=== PATIENT | male | born 1995 | race Caucasian/White ===

== ENCOUNTER 2018-09-23 12:58 | Emergency (ER) | payer MEDICAID ==
[~2018-09-23] VITALS: Wt 77.1 kg
[~2018-09-23 12:58] MED LIST: ACYCLOVIR400 MG PO
[2018-09-23] MEDS ORDERED: ZYRTEC10 MG PO (14:17)
[2018-09-23] MEDS ORDERED: ZOFRAN4 MG PO (14:17)
[2018-09-23] MEDS ORDERED: PREDNISONE20 M1 PO (14:17)
== END 2018-09-23 14:19 | disposition home or self-care (01) ==
LOC: ED 12:58
DX: B34.9 Viral infection, unspecified (principal)

== ENCOUNTER 2018-11-06 20:36 | Emergency (ER) | payer MEDICAID ==
[~2018-11-06] VITALS: Ht 177.8 cm; Wt 65.8 kg
[~2018-11-06 20:36] MED LIST changes: +PREDNISONE20 M1 PO; +ZOFRAN4 MG PO; +ZYRTEC10 MG PO
[2018-11-07] MEDS ORDERED: DOXYCYCLINE100 M3 PO (00:22)
== END 2018-11-07 00:27 | disposition home or self-care (01) ==
LOC: ED 20:36
DX: J32.0 Chronic maxillary sinusitis (principal); F17.200 Nicotine dependence, unspecified, uncomplicated; Z79.899 Other long term (current) drug therapy; Z88.0 Allergy status to penicillin

== ENCOUNTER 2019-05-21 23:00 | Emergency (ER) | payer MEDICAID ==
[~2019-05-21] VITALS: Ht 175.2 cm; Wt 61.2 kg
[~2019-05-21 23:00] MED LIST changes: +DOXYCYCLINE100 M3 PO
[2019-05-21] MEDS ORDERED: Motrin,Rufen800 MG PO (23:10)
[2019-05-21] MEDS ORDERED: CLINDAMYCIN HC300 MG PO (23:10)
== END 2019-05-21 23:29 | disposition home or self-care (01) ==
LOC: ED 23:00
DX: K08.89 Other specified disorders of teeth and supporting structures (principal); Z88.0 Allergy status to penicillin; Z91.040 Latex allergy status

== ENCOUNTER 2019-08-17 14:15 | Emergency (ER) | payer MEDICAID ==
[~2019-08-17] VITALS: Ht 175.2 cm; Wt 63.5 kg
[~2019-08-17 14:15] MED LIST changes: +CLINDAMYCIN HC300 MG PO; +Motrin,Rufen800 MG PO
[2019-08-17 15:07] LABS: BASO % 0.4 % (0.0-1.0); EOS % 0.2 % (1.0-4.0); HEMATOCRIT 43.6 % (42.0-52.0); HEMOGLOBIN 14.9 g/dl (14.0-18.0); LYMPH # 1.5 10*3/uL (1.3-4.4); LYMPH % 26.8 % (27.0-41.0); MEAN CELL VOLUME 91.8 fl (80.0-94.0); MEAN CORPUSCULAR HGB 31.4 pg (27.0-31.0); MEAN CORPUSCULAR HGB CONC 34.2 g/dl (33.0-37.0); MEAN PLATELET VOLUME 8.7 fl (9.6-12.3); MONO # 0.3 10*3/uL (0.1-1.0); MONO % 5.5 % (3.0-9.0); NEUT # 3.7 10*3/uL (2.3-7.9); NEUT % 66.9 % (47.0-73.0); PLATELET COUNT AUTOMATED 171 10*3/uL (130-400); RED BLOOD COUNT 4.75 10*6/uL (4.50-5.90); WHITE BLOOD COUNT 5.6 10*3/uL (4.8-10.8)
[2019-08-17 15:19] LABS: ALBUMIN 4.1 gm/dl (3.1-4.5); ALKALINE PHOSPHATASE 51 U/L (45-117); BUN 12 mg/dl (7-24); CHLORIDE 109 mmol/L (98-107); CREATININE 0.97 mg/dL (0.70-1.30); LIPASE 123 U/L (73-393); POTASSIUM 3.9 mmol/L (3.5-5.1); SGOT/AST 21 IU/L (3-35); SGPT/ALT 24 U/L (12-78); SODIUM 141 mmol/L (136-145); TOTAL PROTEIN 7.1 gm/dL (6.4-8.2)
[2019-08-17] MEDS ORDERED: PHENERGAN25 M3 PO (17:05)
== END 2019-08-17 17:14 | disposition home or self-care (01) ==
LOC: ED 14:15
PROVIDERS: Emergency Medicine
DX: K52.9 Noninfective gastroenteritis and colitis, unspecified (principal); K62.89 Other specified diseases of anus and rectum; Z88.0 Allergy status to penicillin; Z79.2 Long term (current) use of antibiotics; Z79.899 Other long term (current) drug therapy

== ENCOUNTER 2019-08-22 18:24 | Emergency (ER) | payer MEDICAID ==
[~2019-08-22] VITALS: Ht 175.2 cm; Wt 63.5 kg
[~2019-08-22 18:24] MED LIST changes: +PHENERGAN25 M3 PO
[2019-08-22] MEDS ORDERED: ANTIBIOTIC28.4 GM T (18:58)
[2019-08-22] MEDS ORDERED: CEPHALEXIN500 M1 PO (18:58)
== END 2019-08-22 19:35 | disposition home or self-care (01) ==
LOC: ED 18:24
DX: S61.210A Laceration without foreign body of right index finger without damage to nail, initial encounter (principal); Z88.0 Allergy status to penicillin; Z79.2 Long term (current) use of antibiotics; Z79.899 Other long term (current) drug therapy; W26.0XXA Contact with knife, initial encounter; Y93.89 Activity, other specified; Y92.89 Other specified places as the place of occurrence of the external cause; Y99.8 Other external cause status

== ENCOUNTER 2019-09-14 19:54 | Emergency (ER) | payer MEDICAID ==
[~2019-09-14] VITALS: Wt 61.2 kg
[~2019-09-14 19:54] MED LIST changes: +ANTIBIOTIC28.4 GM T; +CEPHALEXIN500 M1 PO
[2019-09-14] MEDS ORDERED: CLEOCIN HCL150 MG PO (20:39)
== END 2019-09-14 20:49 | disposition home or self-care (01) ==
LOC: ED 19:54
DX: K04.7 Periapical abscess without sinus (principal); J45.909 Unspecified asthma, uncomplicated; Z88.0 Allergy status to penicillin; Z86.14 Personal history of Methicillin resistant Staphylococcus aureus infection

== ENCOUNTER 2019-09-21 22:27 | Emergency (ER) | payer MEDICAID ==
[~2019-09-21] VITALS: Ht 172.7 cm; Wt 61.2 kg
[~2019-09-21 22:27] MED LIST changes: +CLEOCIN HCL150 MG PO
[2019-09-21 23:53] LABS: BASO % 0.5 % (0.0-1.0); EOS % 0.3 % (1.0-4.0); HEMATOCRIT 40.3 % (42.0-52.0); LYMPH # 1.8 10*3/uL (1.3-4.4); MEAN CELL VOLUME 89.4 fl (80.0-94.0); MEAN CORPUSCULAR HGB CONC 34.7 g/dl (33.0-37.0); MEAN PLATELET VOLUME 8.8 fl (9.6-12.3); MONO # 0.5 10*3/uL (0.1-1.0); MONO % 7.8 % (3.0-9.0); NEUT # 3.8 10*3/uL (2.3-7.9); NEUT % 62.2 % (47.0-73.0); PLATELET COUNT AUTOMATED 186 10*3/uL (130-400); RED BLOOD COUNT 4.51 10*6/uL (4.50-5.90); RED CELL DISTRI WIDTH 11.6 % (0-14.5)
[2019-09-22 00:14] LABS: ALKALINE PHOSPHATASE 52 U/L (45-117); BUN 12 mg/dl (7-24); CHLORIDE 108 mmol/L (98-107); CREATININE 0.93 mg/dL (0.70-1.30); POTASSIUM 3.8 mmol/L (3.5-5.1); SGOT/AST 14 IU/L (3-35); SGPT/ALT 18 U/L (12-78); SODIUM 141 mmol/L (136-145); TOTAL PROTEIN 6.7 gm/dL (6.4-8.2)
[2019-09-22] MEDS ORDERED: ZOFRAN4 MG PO (01:31)
[2019-09-22] MEDS ORDERED: FLAGYL500 MG PO (01:31)
== END 2019-09-22 01:34 | disposition home or self-care (01) ==
LOC: ED 22:27
PROVIDERS: Nurse Practitioner Family
DX: K04.7 Periapical abscess without sinus (principal); J45.909 Unspecified asthma, uncomplicated; K21.9 Gastro-esophageal reflux disease without esophagitis; Z88.0 Allergy status to penicillin; Z86.14 Personal history of Methicillin resistant Staphylococcus aureus infection

== ENCOUNTER 2019-12-03 21:09 | Emergency (ER) | payer MEDICAID ==
[~2019-12-03] VITALS: Ht 175.2 cm; Wt 59.0 kg
[~2019-12-03 21:09] MED LIST changes: +FLAGYL500 MG PO
[2019-12-03] MEDS ORDERED: CLARITIN10 MG PO (22:39)
[2019-12-03] MEDS ORDERED: PROVENTIL HFA6.7 GM INH (22:39)
== END 2019-12-03 22:42 | disposition home or self-care (01) ==
LOC: ED 21:09
DX: J06.9 Acute upper respiratory infection, unspecified (principal); J45.909 Unspecified asthma, uncomplicated; F17.200 Nicotine dependence, unspecified, uncomplicated; Z88.0 Allergy status to penicillin; Z86.14 Personal history of Methicillin resistant Staphylococcus aureus infection

== ENCOUNTER 2020-01-30 16:00 | Emergency (ER) | payer MEDICAID ==
[~2020-01-30] VITALS: Ht 180.3 cm; Wt 65.8 kg
[~2020-01-30 16:00] MED LIST changes: +CLARITIN10 MG PO; +PROVENTIL HFA6.7 GM INH
== END 2020-01-30 18:00 | disposition home or self-care (01) ==
LOC: ED 16:00
DX: R09.1 Pleurisy (principal); Z88.0 Allergy status to penicillin; Z79.899 Other long term (current) drug therapy

== ENCOUNTER 2020-05-26 16:59 | Emergency (ER) | payer MEDICAID ==
[~2020-05-26] VITALS: Wt 63.5 kg
== END 2020-05-26 21:16 | disposition home or self-care (01) ==
LOC: ED 16:59
DX: M22.91 Unspecified disorder of patella, right knee (principal); J45.909 Unspecified asthma, uncomplicated; F17.200 Nicotine dependence, unspecified, uncomplicated; Z88.0 Allergy status to penicillin

== ENCOUNTER 2020-09-21 12:05 | Emergency (ER) | payer MEDICAID ==
[~2020-09-21] VITALS: Ht 177.8 cm; Wt 65.8 kg
[2020-09-21 13:26] LABS: BASO % 0.6 % (0.0-1.0); EOS # 0.1 10*3/uL (0.0-0.4); HEMATOCRIT 42.4 % (42.0-52.0); LYMPH # 1.5 10*3/uL (1.3-4.4); LYMPH % 32.3 % (27.0-41.0); MEAN CELL VOLUME 89.6 fl (80.0-94.0); MEAN CORPUSCULAR HGB 30.4 pg (27.0-31.0); MEAN PLATELET VOLUME 8.3 fl (9.6-12.3); MONO # 0.4 10*3/uL (0.1-1.0); MONO % 7.8 % (3.0-9.0); NEUT # 2.8 10*3/uL (2.3-7.9); NEUT % 58.1 % (47.0-73.0); PLATELET COUNT AUTOMATED 171 10*3/uL (130-400); RED BLOOD COUNT 4.73 10*6/uL (4.50-5.90); RED CELL DISTRI WIDTH 11.9 % (0-14.5); WHITE BLOOD COUNT 4.8 10*3/uL (4.8-10.8)
[2020-09-21 13:40] LABS: ALKALINE PHOSPHATASE 61 U/L (45-117); BUN 13 mg/dl (7-24); CHLORIDE 106 mmol/L (98-107); CREATININE 0.89 mg/dL (0.70-1.30); LIPASE 100 U/L (73-393); POTASSIUM 4.4 mmol/L (3.5-5.1); SGOT/AST 19 IU/L (3-35); SGPT/ALT 23 U/L (12-78); SODIUM 141 mmol/L (136-145); TOTAL PROTEIN 6.8 gm/dL (6.4-8.2)
[2020-09-21 14:04] LABS: BILIRUBIN Negative (Negative); BLOOD 1+ (Negative); CLARITY Clear (Clear); COLOR Yellow (Yellow); GLUCOSE Negative (Negative); KETONE Negative (Negative); LEUKO ESTERASE Trace (Negative); NITRITE Negative (Negative); PH 7.5 (4.5-8.0); SPECIFIC GRAVITY 1.025 (1.001-1.030)
[2020-09-21 14:22] LABS: EPITHELIAL CELLS 0-2; RBC 21-30 rbc/hpf (0-2); WBC 0-2 wbc/hpf (0-5)
[2020-09-21] MEDS ORDERED: IBUPROFEN600 MG PO (15:12)
== END 2020-09-21 17:50 | disposition home or self-care (01) ==
LOC: ED 12:05
PROVIDERS: Physician Assistant
DX: N23 Unspecified renal colic (principal)

== ENCOUNTER 2020-12-17 18:04 | Emergency (ER) | payer MEDICAID ==
[~2020-12-17] VITALS: Ht 177.8 cm; Wt 65.8 kg
[~2020-12-17 18:04] MED LIST changes: +IBUPROFEN600 MG PO
[2020-12-17 18:59] LABS: BASO % 0.7 % (0.0-1.0); EOS # 0.1 10*3/uL (0.0-0.4); EOS % 2.1 % (1.0-4.0); HEMATOCRIT 41.9 % (42.0-52.0); LYMPH # 1.8 10*3/uL (1.3-4.4); LYMPH % 40.8 % (27.0-41.0); MEAN CELL VOLUME 91.9 fl (80.0-94.0); MEAN CORPUSCULAR HGB 30.9 pg (27.0-31.0); MEAN CORPUSCULAR HGB CONC 33.7 g/dl (33.0-37.0); MEAN PLATELET VOLUME 8.5 fl (9.6-12.3); MONO # 0.4 10*3/uL (0.1-1.0); MONO % 10.1 % (3.0-9.0); NEUT % 46.1 % (47.0-73.0); PLATELET COUNT AUTOMATED 195 10*3/uL (130-400); RED BLOOD COUNT 4.56 10*6/uL (4.50-5.90); RED CELL DISTRI WIDTH 11.9 % (0-14.5); WHITE BLOOD COUNT 4.3 10*3/uL (4.8-10.8)
[2020-12-17 19:16] LABS: ALBUMIN 3.7 gm/dl (3.1-4.5); ALKALINE PHOSPHATASE 60 U/L (45-117); BUN 12 mg/dl (7-24); CHLORIDE 106 mmol/L (98-107); CREATININE 0.79 mg/dL (0.70-1.30); POTASSIUM 4.4 mmol/L (3.5-5.1); SGOT/AST 15 IU/L (3-35); SGPT/ALT 20 U/L (12-78); SODIUM 140 mmol/L (136-145); TOTAL PROTEIN 6.5 gm/dL (6.4-8.2)
== END 2020-12-17 20:25 | disposition home or self-care (01) ==
LOC: ED 18:04
PROVIDERS: Physician Assistant
DX: R51.9 Headache, unspecified (principal); F41.9 Anxiety disorder, unspecified; J45.909 Unspecified asthma, uncomplicated; Z88.0 Allergy status to penicillin

== ENCOUNTER 2021-01-16 17:15 | Emergency (ER) | payer MEDICAID ==
[2021-01-16 18:35] LABS: BASO % 0.5 % (0.0-1.0); EOS # 0.1 10*3/uL (0.0-0.4); HEMATOCRIT 38.9 % (42.0-52.0); LYMPH % 31.6 % (27.0-41.0); MEAN CELL VOLUME 88.2 fl (80.0-94.0); MEAN CORPUSCULAR HGB 30.8 pg (27.0-31.0); MONO # 0.5 10*3/uL (0.1-1.0); MONO % 7.7 % (3.0-9.0); NEUT # 3.7 10*3/uL (2.3-7.9); PLATELET COUNT AUTOMATED 184 10*3/uL (130-400); RED BLOOD COUNT 4.41 10*6/uL (4.50-5.90); RED CELL DISTRI WIDTH 11.6 % (0-14.5); WHITE BLOOD COUNT 6.2 10*3/uL (4.8-10.8)
[2021-01-16 18:47] LABS: BILIRUBIN Negative (Negative); BLOOD Negative (Negative); CLARITY Cloudy (Clear); COLOR Yellow (Yellow); GLUCOSE Negative (Negative); KETONE Negative (Negative); LEUKO ESTERASE Negative (Negative); NITRITE Negative (Negative); UROBILINOGEN 0.2 E.U./dl (0.0-1.0)
[2021-01-16 18:50] LABS: ALKALINE PHOSPHATASE 56 U/L (45-117); BUN 13 mg/dl (7-24); CHLORIDE 108 mmol/L (98-107); CREATININE 0.85 mg/dL (0.70-1.30); LIPASE 165 U/L (73-393); SGOT/AST 14 IU/L (3-35); SGPT/ALT 20 U/L (12-78); SODIUM 141 mmol/L (136-145); TOTAL PROTEIN 6.5 gm/dL (6.4-8.2)
[2021-01-16 18:59] LABS: EPITHELIAL CELLS 0-2; WBC 0-2 wbc/hpf (0-5)
[2021-01-16] MEDS ORDERED: ROBAXIN-750750 MG PO (20:33)
[2021-01-16] MEDS ORDERED: IBUPROFEN600 MG PO (20:33)
== END 2021-01-16 20:42 | disposition home or self-care (01) ==
LOC: ED 17:15
PROVIDERS: Physician Assistant
DX: S39.012A Strain of muscle, fascia and tendon of lower back, initial encounter (principal); Z88.8 Allergy status to other drugs, medicaments and biological substances; X58.XXXA Exposure to other specified factors, initial encounter; Y93.89 Activity, other specified; Y92.89 Other specified places as the place of occurrence of the external cause; Y99.8 Other external cause status

== ENCOUNTER 2021-02-15 14:35 | Emergency (ER) | payer MEDICAID ==
[~2021-02-15] VITALS: Ht 175.2 cm; Wt 61.2 kg
[~2021-02-15 14:35] MED LIST changes: +ROBAXIN-750750 MG PO
[2021-02-15 15:20] LABS: BASO % 0.5 % (0.0-1.0); EOS # 0.1 10*3/uL (0.0-0.4); EOS % 1.5 % (1.0-4.0); HEMATOCRIT 41.6 % (42.0-52.0); LYMPH # 2.6 10*3/uL (1.3-4.4); LYMPH % 44.1 % (27.0-41.0); MEAN CELL VOLUME 87.4 fl (80.0-94.0); MEAN CORPUSCULAR HGB 31.1 pg (27.0-31.0); MEAN CORPUSCULAR HGB CONC 35.6 g/dl (33.0-37.0); MEAN PLATELET VOLUME 8.5 fl (9.6-12.3); MONO # 0.5 10*3/uL (0.1-1.0); MONO % 8.7 % (3.0-9.0); NEUT # 2.7 10*3/uL (2.3-7.9); NEUT % 44.9 % (47.0-73.0); PLATELET COUNT AUTOMATED 209 10*3/uL (130-400); RED BLOOD COUNT 4.76 10*6/uL (4.50-5.90); RED CELL DISTRI WIDTH 11.9 % (0-14.5)
[2021-02-15 15:38] LABS: ALBUMIN 3.8 gm/dl (3.1-4.5); ALKALINE PHOSPHATASE 64 U/L (45-117); BUN 9 mg/dl (7-24); CHLORIDE 108 mmol/L (98-107); POTASSIUM 3.4 mmol/L (3.5-5.1); SGOT/AST 14 IU/L (3-35); SGPT/ALT 22 U/L (12-78); SODIUM 139 mmol/L (136-145); TOTAL PROTEIN 6.8 gm/dL (6.4-8.2)
[2021-02-15 16:38] LABS: BILIRUBIN Negative (Negative); BLOOD 3+ (Negative); CLARITY Cloudy (Clear); COLOR Dark Yellow (Yellow); GLUCOSE Negative (Negative); KETONE Trace (Negative); LEUKO ESTERASE Trace (Negative); NITRITE Negative (Negative); PH 6.5 (4.5-8.0)
[2021-02-15 16:54] LABS: MUCOUS 2+; RBC 51-100 rbc/hpf (0-2)
== END 2021-02-15 18:43 | disposition home or self-care (01) ==
LOC: ED 14:35
PROVIDERS: Physician Assistant
DX: R31.9 Hematuria, unspecified (principal); R10.9 Unspecified abdominal pain; Z79.899 Other long term (current) drug therapy

== ENCOUNTER 2021-02-18 00:27 | Emergency (ER) | payer MEDICAID ==
[~2021-02-18] VITALS: Ht 177.8 cm; Wt 61.2 kg
== END 2021-02-18 00:52 | disposition home or self-care (01) ==
LOC: ED 00:27
DX: F41.9 Anxiety disorder, unspecified (principal); Z79.899 Other long term (current) drug therapy

== ENCOUNTER 2021-05-02 17:17 | Emergency (ER) | payer MEDICAID ==
[~2021-05-02] VITALS: Ht 177.8 cm; Wt 63.5 kg
== END 2021-05-02 17:57 | disposition left against medical advice (07) ==
LOC: ED 17:17
DX: R00.0 Tachycardia, unspecified (principal); R07.9 Chest pain, unspecified; Z53.21 Procedure and treatment not carried out due to patient leaving prior to being seen by health care provider

== ENCOUNTER 2021-06-06 02:39 | Emergency (ER) | payer MEDICAID | END 2021-06-06 03:17 | disposition home or self-care (01) | LOC: ED 02:39 | DX: R00.2 Palpitations (principal); F41.9 Anxiety disorder, unspecified ==

== ENCOUNTER → 2021-09-25 | Outpatient (CLI) | payer MEDICAID | END | disposition home or self-care (01) | LOC: COVID19 17:30 | PROVIDERS: ATTEND Internal Medicine | DX: U07.1 COVID-19 (principal) ==

== ENCOUNTER 2021-11-26 01:31 | Emergency (ER) | payer MEDICAID ==
[2021-11-26] MEDS ORDERED: AMOXICILLIN500 M2 PO (03:59)
[2021-11-26] MEDS ORDERED: DEBROX15 ML OT (03:59)
== END 2021-11-26 04:02 | disposition home or self-care (01) ==
LOC: ED 01:31
DX: J45.909 Unspecified asthma, uncomplicated (principal)

== ENCOUNTER 2022-06-01 23:56 | Emergency (ER) | payer MEDICAID ==
[~2022-06-01] VITALS: Ht 177.8 cm; Wt 63.5 kg
[~2022-06-01 23:56] MED LIST changes: +AMOXICILLIN500 M2 PO; +DEBROX15 ML OT
[2022-06-02 03:35] LABS: BASO % 0.2 % (0.0-1.0); EOS % 0.7 % (1.0-4.0); HEMATOCRIT 38.2 % (42.0-52.0); LYMPH # 0.2 10*3/uL (1.3-4.4); MEAN CORPUSCULAR HGB 31.3 pg (27.0-31.0); MEAN CORPUSCULAR HGB CONC 35.6 g/dl (33.0-37.0); MEAN PLATELET VOLUME 8.7 fl (9.6-12.3); MONO # 0.5 10*3/uL (0.1-1.0); MONO % 8.1 % (3.0-9.0); NEUT % 87.6 % (47.0-73.0); PLATELET COUNT AUTOMATED 154 10*3/uL (130-400); RED BLOOD COUNT 4.34 10*6/uL (4.50-5.90); RED CELL DISTRI WIDTH 11.9 % (0-14.5); WHITE BLOOD COUNT 5.7 10*3/uL (4.8-10.8)
[2022-06-02 03:50] LABS: BUN 15 mg/dl (7-24); CHLORIDE 107 mmol/L (98-107); CREATININE 0.82 mg/dL (0.70-1.30); POTASSIUM 3.3 mmol/L (3.5-5.1); SODIUM 138 mmol/L (136-145)
== END 2022-06-02 05:23 | disposition home or self-care (01) ==
LOC: ED 23:56
PROVIDERS: Emergency Medicine
DX: R09.81 Nasal congestion (principal); Z20.822 Contact with and (suspected) exposure to COVID-19; R09.89 Other specified symptoms and signs involving the circulatory and respiratory systems; R50.9 Fever, unspecified; Z88.0 Allergy status to penicillin; Z90.89 Acquired absence of other organs

== ENCOUNTER 2022-08-08 21:42 | Emergency (ER) | payer MEDICAID ==
[~2022-08-08] VITALS: Ht 175.2 cm; Wt 58.7 kg
[2022-08-08 22:55] LABS: BASO % 0.6 % (0.0-1.0); EOS # 0.1 10*3/uL (0.0-0.4); EOS % 0.9 % (1.0-4.0); HEMATOCRIT 42.6 % (42.0-52.0); LYMPH # 1.3 10*3/uL (1.3-4.4); LYMPH % 24.4 % (27.0-41.0); MEAN CELL VOLUME 85.7 fl (80.0-94.0); MEAN CORPUSCULAR HGB 30.8 pg (27.0-31.0); MEAN CORPUSCULAR HGB CONC 35.9 g/dl (33.0-37.0); MEAN PLATELET VOLUME 8.6 fl (9.6-12.3); MONO # 0.5 10*3/uL (0.1-1.0); MONO % 8.9 % (3.0-9.0); NEUT # 3.5 10*3/uL (2.3-7.9); NEUT % 64.8 % (47.0-73.0); PLATELET COUNT AUTOMATED 193 10*3/uL (130-400); RED BLOOD COUNT 4.97 10*6/uL (4.50-5.90); RED CELL DISTRI WIDTH 11.8 % (0-14.5); WHITE BLOOD COUNT 5.4 10*3/uL (4.8-10.8)
[2022-08-08 23:11] LABS: ALKALINE PHOSPHATASE 57 U/L (45-117); BUN 14 mg/dl (7-24); CHLORIDE 108 mmol/L (98-107); CREATININE 0.95 mg/dL (0.70-1.30); POTASSIUM 4.8 mmol/L (3.5-5.1); SGOT/AST 13 IU/L (3-35); SGPT/ALT 23 U/L (12-78); SODIUM 142 mmol/L (136-145); TOTAL PROTEIN 6.8 gm/dL (6.4-8.2)
== END 2022-08-08 23:40 | disposition home or self-care (01) ==
LOC: ED 21:42
PROVIDERS: Physician Assistant
DX: R42 Dizziness and giddiness (principal); Z88.0 Allergy status to penicillin; Z90.89 Acquired absence of other organs; F17.200 Nicotine dependence, unspecified, uncomplicated

== ENCOUNTER 2022-10-23 18:02 | Emergency (ER) | payer MEDICAID ==
[~2022-10-23] VITALS: Ht 177.8 cm; Wt 61.2 kg
[2022-10-23] MEDS ORDERED: FLONASE ALLERG9.9 ML NAS (20:39)
== END 2022-10-23 20:52 | disposition home or self-care (01) ==
LOC: ED 18:02
DX: J06.9 Acute upper respiratory infection, unspecified (principal); Z20.822 Contact with and (suspected) exposure to COVID-19

== ENCOUNTER 2022-11-30 04:35 | Emergency (ER) | payer MEDICAID ==
[~2022-11-30] VITALS: Ht 182.8 cm; Wt 68.0 kg
[~2022-11-30 04:35] MED LIST changes: +FLONASE ALLERG9.9 ML NAS
[2022-11-30 05:21] LABS: ALKALINE PHOSPHATASE 54 U/L (46-116); BUN 11 mg/dl (9-23); CHLORIDE 108 mmol/L (98-107); POTASSIUM 3.5 mmol/L (3.4-5.1); SGPT/ALT 9 U/L (10-49); TOTAL PROTEIN 5.8 gm/dL (6.0-8.0)
[2022-11-30 05:57] LABS: BASO % 0.6 % (0.0-1.0); EOS # 0.2 10*3/uL (0.0-0.4); EOS % 2.6 % (1.0-4.0); HEMATOCRIT 40.5 % (42.0-52.0); LYMPH # 2.9 10*3/uL (1.3-4.4); LYMPH % 45.9 % (27.0-41.0); MEAN CELL VOLUME 90.4 fl (80.0-94.0); MEAN CORPUSCULAR HGB CONC 34.3 g/dl (33.0-37.0); MONO # 0.7 10*3/uL (0.1-1.0); MONO % 11.2 % (3.0-9.0); NEUT # 2.4 10*3/uL (2.3-7.9); NEUT % 38.7 % (47.0-73.0); PLATELET COUNT AUTOMATED 204 10*3/uL (130-400); RED BLOOD COUNT 4.48 10*6/uL (4.50-5.90); RED CELL DISTRI WIDTH 11.9 % (0-14.5); WHITE BLOOD COUNT 6.2 10*3/uL (4.8-10.8)
[2022-11-30] MEDS ORDERED: Ondansetron4 MG PO (06:11)
[2022-11-30] MEDS ORDERED: IBU800 M2 PO (06:11)
[2022-11-30] MEDS ORDERED: Percocet 325 MG1 TAB PO (06:11)
[2022-11-30] MEDS ORDERED: FLOMAX0.4 MG PO (06:11)
== END 2022-11-30 06:55 | disposition home or self-care (01) ==
LOC: ED 04:35
PROVIDERS: Emergency Medicine
DX: N13.2 Hydronephrosis with renal and ureteral calculous obstruction (principal); Z90.89 Acquired absence of other organs

== ENCOUNTER 2023-03-03 19:52 | Emergency (ER) | payer MEDICAID ==
[~2023-03-03] VITALS: Ht 172.7 cm; Wt 72.6 kg
[~2023-03-03 19:52] MED LIST changes: +FLOMAX0.4 MG PO; +IBU800 M2 PO; +Ondansetron4 MG PO; +Percocet 325 MG1 TAB PO
[2023-03-03] MEDS ORDERED: FLONASE ALLERG9.9 ML NAS (21:31)
[2023-03-03] MEDS ORDERED: ALLEGRA ALLERG180 M2 PO (21:31)
[2023-03-03] MEDS ORDERED: IBU800 MG PO (21:31)
== END 2023-03-03 21:43 | disposition home or self-care (01) ==
LOC: ED 19:52
DX: J30.9 Allergic rhinitis, unspecified (principal); R07.89 Other chest pain; F41.9 Anxiety disorder, unspecified; Z98.890 Other specified postprocedural states

== ENCOUNTER 2023-05-05 05:49 | Emergency (ER) | payer MEDICAID ==
[~2023-05-05] VITALS: Ht 177.8 cm; Wt 65.8 kg
[~2023-05-05 05:49] MED LIST changes: +ALLEGRA ALLERG180 M2 PO; +IBU800 MG PO
[2023-05-05] MEDS ORDERED: MELOXICAM15 MG PO (06:49)
== END 2023-05-05 06:53 | disposition home or self-care (01) ==
LOC: ED 05:49
DX: S20.212A Contusion of left front wall of thorax, initial encounter (principal); F41.9 Anxiety disorder, unspecified; J45.909 Unspecified asthma, uncomplicated; X50.0XXA Overexertion from strenuous movement or load, initial encounter; Y93.89 Activity, other specified; Y92.009 Unspecified place in unspecified non-institutional (private) residence as the place of occurrence of the external cause; Y99.0 Civilian activity done for income or pay

== ENCOUNTER 2023-07-30 08:22 | Emergency (ER) | payer MEDICAID ==
[~2023-07-30] VITALS: Wt 63.5 kg
[~2023-07-30 08:22] MED LIST changes: +MELOXICAM15 MG PO
[2023-07-30 09:16] LABS: BASO % 0.7 % (0.0-1.0); EOS % 0.7 % (1.0-4.0); HEMATOCRIT 41.9 % (42.0-52.0); LYMPH # 1.3 10*3/uL (1.3-4.4); LYMPH % 28.6 % (27.0-41.0); MEAN CELL VOLUME 88.6 fl (80.0-94.0); MEAN CORPUSCULAR HGB 30.4 pg (27.0-31.0); MEAN CORPUSCULAR HGB CONC 34.4 g/dl (33.0-37.0); MEAN PLATELET VOLUME 8.7 fl (9.6-12.3); MONO # 0.4 10*3/uL (0.1-1.0); MONO % 9.2 % (3.0-9.0); NEUT # 2.8 10*3/uL (2.3-7.9); NEUT % 60.6 % (47.0-73.0); PLATELET COUNT AUTOMATED 228 10*3/uL (130-400); RED BLOOD COUNT 4.73 10*6/uL (4.50-5.90); RED CELL DISTRI WIDTH 11.9 % (0-14.5); WHITE BLOOD COUNT 4.6 10*3/uL (4.8-10.8)
[2023-07-30 09:39] LABS: ALKALINE PHOSPHATASE 76 U/L (46-116); BUN 8 mg/dl (9-23); CHLORIDE 109 mmol/L (98-107); SGPT/ALT 11 U/L (5-49); TOTAL PROTEIN 6.4 gm/dL (6.0-8.0)
== END 2023-07-30 11:16 | disposition home or self-care (01) ==
LOC: ED 08:22
PROVIDERS: Family Medicine
DX: R09.1 Pleurisy (principal); I49.8 Other specified cardiac arrhythmias; F41.9 Anxiety disorder, unspecified; J45.909 Unspecified asthma, uncomplicated; Z98.890 Other specified postprocedural states; F17.290 Nicotine dependence, other tobacco product, uncomplicated

== ENCOUNTER 2024-06-03 08:20 | Emergency (ER) | payer BC ==
[~2024-06-03] VITALS: Ht 177.8 cm; Wt 65.8 kg
[2024-06-03 09:32] LABS: BILIRUBIN Negative (Negative); BLOOD Negative (Negative); CLARITY Cloudy (Clear); COLOR Yellow (Yellow); GLUCOSE Negative (Negative); KETONE Negative (Negative); LEUKO ESTERASE Negative (Negative); NITRITE Negative (Negative); PH 7.5 (4.5-8.0)
[2024-06-03] MEDS ORDERED: CYCLOBENZAPRINE5 M3 PO (09:38)
[2024-06-03] MEDS ORDERED: NAPROSYN500 MG PO (09:38)
[2024-06-03 09:44] LABS: BACTERIA TRACE; EPITHELIAL CELLS 0-2; FINE GRANULAR CAST 0-2; RBC 0-2 rbc/hpf (0-2); WBC 0-2 wbc/hpf (0-5)
== END 2024-06-03 10:01 | disposition home or self-care (01) ==
LOC: ED 08:20
PROVIDERS: Emergency Medicine
DX: S39.012A Strain of muscle, fascia and tendon of lower back, initial encounter (principal); F41.9 Anxiety disorder, unspecified; J45.909 Unspecified asthma, uncomplicated; Z87.442 Personal history of urinary calculi; Z98.890 Other specified postprocedural states; X58.XXXA Exposure to other specified factors, initial encounter; Y93.89 Activity, other specified; Y92.89 Other specified places as the place of occurrence of the external cause; Y99.8 Other external cause status

== ENCOUNTER 2024-08-15 01:30 | Emergency (ER) | payer SELFPAY ==
[~2024-08-15] VITALS: Ht 177.8 cm; Wt 65.8 kg
[~2024-08-15 01:30] MED LIST changes: +CYCLOBENZAPRINE5 M3 PO; +NAPROSYN500 MG PO
[2024-08-15] MEDS ORDERED: LORazepam 1 MG TAB PO ONE (01:50)
[2024-08-15 02:04] LABS: BASO % 0.4 % (0.0-1.0); EOS % 0.4 % (1.0-4.0); HEMATOCRIT 42.3 % (42.0-52.0); MEAN CELL VOLUME 88.5 fl (80.0-94.0); MEAN CORPUSCULAR HGB 30.8 pg (27.0-31.0); MEAN CORPUSCULAR HGB CONC 34.8 g/dl (33.0-37.0); MEAN PLATELET VOLUME 8.5 fl (9.6-12.3); MONO # 0.5 10*3/uL (0.1-1.0); MONO % 7.5 % (3.0-9.0); NEUT # 4.4 10*3/uL (2.3-7.9); PLATELET COUNT AUTOMATED 227 10*3/uL (130-400); RED BLOOD COUNT 4.78 10*6/uL (4.50-5.90); RED CELL DISTRI WIDTH 11.6 % (0-14.5); WHITE BLOOD COUNT 7.2 10*3/uL (4.8-10.8)
[2024-08-15 02:31] LABS: BUN 12 mg/dl (9-23); CHLORIDE 105 mmol/L (98-107); POTASSIUM 3.1 mmol/L (3.4-5.1)
[2024-08-15 02:33] LABS: ETHYL ALCOHOL < 3.0 mg/dl (<3)
[2024-08-15] MEDS ORDERED: POTASSIUM CHLORIDE 20 MEQ TAB PO ONE (03:00)
== END 2024-08-15 03:00 | disposition home or self-care (01) ==
LOC: ED 01:30
PROVIDERS: Internal Medicine
DX: F12.980 Cannabis use, unspecified with anxiety disorder (principal); R00.0 Tachycardia, unspecified; F17.200 Nicotine dependence, unspecified, uncomplicated; Z79.899 Other long term (current) drug therapy

== ENCOUNTER 2025-01-22 10:39 | Emergency (ER) | payer SELFPAY ==
[~2025-01-22] VITALS: Ht 177.8 cm; Wt 59.0 kg
[2025-01-22] MEDS ORDERED: VYVANSE30 MG PO (10:56)
[2025-01-22] MEDS ORDERED: Ondansetron Hydrochloride 4 MG/2 ML VIAL IV ONE (11:10)
[2025-01-22] MEDS ORDERED: SODIUM CHLORIDE 0.9% 1,000 ML IV ONE (11:10)
[2025-01-22 11:22] LABS: BASO % 0.3 % (0.0-1.0); EOS % 0.5 % (1.0-4.0); MEAN CELL VOLUME 87.1 fl (80.0-94.0); MEAN CORPUSCULAR HGB 31.5 pg (27.0-31.0); MEAN CORPUSCULAR HGB CONC 36.1 g/dl (33.0-37.0); MEAN PLATELET VOLUME 8.4 fl (9.6-12.3); MONO # 0.3 10*3/uL (0.1-1.0); MONO % 7.5 % (3.0-9.0); NEUT # 2.4 10*3/uL (2.3-7.9); NEUT % 62.4 % (47.0-73.0); PLATELET COUNT AUTOMATED 203 10*3/uL (130-400); RED BLOOD COUNT 5.05 10*6/uL (4.50-5.90); WHITE BLOOD COUNT 3.9 10*3/uL (4.8-10.8)
[2025-01-22 11:45] LABS: ALKALINE PHOSPHATASE 57 U/L (46-116); BUN 12 mg/dl (9-23); CHLORIDE 103 mmol/L (98-107); POTASSIUM 4.1 mmol/L (3.4-5.1); SGPT/ALT 15 U/L (5-49); TOTAL PROTEIN 6.8 gm/dL (6.0-8.0)
[2025-01-22] MEDS ORDERED: Ondansetron4 MG PO (12:19)
[2025-01-22] MEDS ORDERED: Ketorolac Tromethamine 30 MG/ML VIAL IV ONE (12:20)
== END 2025-01-22 12:22 | disposition home or self-care (01) ==
LOC: ED 10:39
PROVIDERS: Nurse Practitioner Family
DX: B34.9 Viral infection, unspecified (principal); Z20.822 Contact with and (suspected) exposure to COVID-19; F41.9 Anxiety disorder, unspecified; J45.909 Unspecified asthma, uncomplicated; K30 Functional dyspepsia; Z86.14 Personal history of Methicillin resistant Staphylococcus aureus infection; Z79.899 Other long term (current) drug therapy; Z87.442 Personal history of urinary calculi

== ENCOUNTER 2025-05-09 06:05 | Emergency (ER) | payer SELFPAY ==
[~2025-05-09] VITALS: Ht 175.2 cm; Wt 65.8 kg
[~2025-05-09 06:05] MED LIST changes: +VYVANSE30 MG PO
== END 2025-05-09 06:31 | disposition home or self-care (01) ==
LOC: ED 06:05
DX: B34.9 Viral infection, unspecified (principal); Z79.899 Other long term (current) drug therapy